=== PATIENT | female | born 1990 | race Caucasian/White ===

== ENCOUNTER 2017-08-07 20:41 | Observation (INO) | payer MEDICAID, OTHER ==
[~2017-08-07] VITALS: Ht 174 cm; Wt 100.7 kg
[2017-08-07] MEDS ORDERED: ACETAMINOPHEN 325 MG TAB PO ONE ×2 (21:50→22:15)
[2017-08-07] MEDS ORDERED: LACTATED RINGER'S 1,000 ML IV SCH (22:02)
[2017-08-07] MEDS ORDERED: LACTATED RINGER'S 1,000 ML IV ONE (22:02)
[2017-08-07 23:16] LABS: Urine Bacteria NONE SEEN /hpf (None Seen); Urine Blood Negative /uL (Negative); Urine Specific Gravity 1.019 (1.001-1.035); Urine WBC 3 /hpf (0 - 5)
[2017-08-07 23:30] LABS: Amphetamine Screen, Urine NEGATIVE (NEGATIVE); Barbiturate Scree,Urine NEGATIVE (NEGATIVE); Benzodiazephine Screen, Urine NEGATIVE (NEGATIVE); Cannabinoid Screen, Urine NEGATIVE (NEGATIVE); Cocaine Screen, Urine NEGATIVE (NEGATIVE); Opiate Scree,Urine NEGATIVE (NEGATIVE); Phencyclidine Screen, Urine NEGATIVE (NEGATIVE)
[2017-08-07 23:47] LABS: Alcohol, Urine < 3.0 mg/dL (0-5)
== END 2017-08-07 23:45 | disposition home or self-care (01) | DRG 566 ==
LOC: LDRP 20:41 → EDBD 20:41
PROVIDERS: ADMIT Specialist; ATTEND Specialist
DX: O42.92 Full-term premature rupture of membranes, unspecified as to length of time between rupture and onset of labor (principal); Z3A.38 38 weeks gestation of pregnancy
CPT/HCPCS: 59025; 80307; 81001; 81002; 94760; G0378; 96365; 96366

== ENCOUNTER 2017-08-08 20:00 | Emergency (ER) | payer MEDICAID | END 2017-08-09 | disposition left against medical advice (07) | LOC: ER 20:00 | DX: R50.9 Fever, unspecified (principal); Z53.21 Procedure and treatment not carried out due to patient leaving prior to being seen by health care provider ==